=== PATIENT | male | born 1950 | race Caucasian/White ===

== ENCOUNTER → 2017-12-22 | Outpatient (CLI) | payer OTHER ==
[~2017-12-22] MED LIST: ASPI81CH PO; BENAML10/5 PO; HYDACE5 PO; NAPR500 PO; Nitrostat0.4 MG SL; OMEP10ER PO; TOBR.3OPSO OP; TRAM50 PO
== END | disposition home or self-care (01) ==
LOC: PLD 14:05 → LAB SHORT 14:05
DX: D22.39 Melanocytic nevi of other parts of face (principal)
CPT/HCPCS: 88305

== ENCOUNTER → 2018-09-10 | Outpatient (CLI) | payer OTHER ==
[2018-09-10 12:07] LABS: BASOPHILS ABSOLUTE AUTO 0.01 K/mm3 (0.00-0.23); BASOPHILS PERCENT AUTO 0 % (0-2); EOSINOPHILS ABSOLUTE AUTO 0.14 K/mm3 (0.00-0.68); EOSINOPHILS PERCENT AUTO 3 % (0-6); Hematocrit 41.3 % (37.0-53.0); Hemoglobin 13.9 g/dL (13.5-17.5); IMMATURE GRAN ABSOLUTE AUTO 0.04 K/mm3 (0.00-0.10); IMMATURE GRAN PERCENT AUTO 1 % (0-1); LYMPHOCYTES ABSOLUTE AUTO 1.57 K/mm3 (0.84-5.20); LYMPHOCYTES PERCENT AUTO 28 % (21-46); MONOCYTES ABSOLUTE AUTO 0.55 K/mm3 (0.16-1.47); MONOCYTES PERCENT AUTO 10 % (4-13); Mean Corpuscular HGB 31.4 pg (26.0-34.0); Mean Corpuscular HGB Conc 33.7 g/dL (31.5-36.5); Mean Corpuscular Volume 93 fL (80-100); NEUTROPHILS ABSOLUTE AUTO 3.24 K/mm3 (1.96-9.15); NEUTROPHILS PERCENT AUTO 58 % (41-73); Platelet Count 237 K/mm3 (150-400); RDW Coefficient Variation 13.3 % (11.7-14.2); RDW Standard Deviation 45.5 fL (35.1-46.3); Red Blood Cell Count 4.43 M/mm3 (4.30-5.90); White Blood Cell Count 5.55 K/mm3 (4.00-11.30)
[2018-09-10 12:25] LABS: Alanine Aminotransfer (ALT/SGP 38 U/L (12-78); Albumin, Blood 4.2 g/dL (3.4-5.0); Albumin/Globulin Ratio 1.5 (0.8-1.8); Alk Phos 53 U/L (40-126); Anion Gap 12 mmol/L (6-16); Aspartate Aminotrans (AST/SGOT 19 U/L (12-37); Bilirubin, Total 0.4 mg/dL (0.1-1.0); Blood Urea Nitrogen 22 mg/dL (8-24); Bun/Creatinine Ratio 18.8 (12.0-20.0); CO2, Blood 25 mmol/L (21-32); CPK Creatine Kinase 98 U/L (39-308); Calcium, Blood 9.3 mg/dL (8.5-10.1); Chloride, Blood 105 mmol/L (98-108); Creatinine, Blood 1.17 mg/dL (0.60-1.20); Free Thyroxine 0.73 ng/dL (0.70-1.60); Globulin, Blood 2.8 g/dL (2.2-4.0); Glomerular Filtration Rate >60 (60-); Glucose, Blood 134 mg/dL (70-99); Potassium, Blood 4.2 mmol/L (3.5-5.5); Sodium, Blood 142 mmol/L (136-145); Thyroid Stimulating Hormone 1.643 uIU/mL (0.360-4.800); Troponin I 0.018 ng/mL (0.000-0.040)
== END | disposition home or self-care (01) ==
LOC: LAB SHORT 11:56 → LAB EV 11:56
PROVIDERS: General Practice
DX: R06.02 Shortness of breath (principal); R53.81 Other malaise
CPT/HCPCS: 80053; 82550; 83880; 84439; 84443; 84484; 85025

== ENCOUNTER 2018-12-20 21:47 | Emergency (ER) | payer OTHER ==
[~2018-12-20] VITALS: Ht 177.8 cm; Wt 117.9 kg
== END 2018-12-20 23:40 | disposition home or self-care (01) ==
LOC: ER 21:47
DX: S01.01XA Laceration without foreign body of scalp, initial encounter (principal); W22.8XXA Striking against or struck by other objects, initial encounter; Z79.899 Other long term (current) drug therapy; Z79.82 Long term (current) use of aspirin; K21.9 Gastro-esophageal reflux disease without esophagitis; I10 Essential (primary) hypertension; Z87.891 Personal history of nicotine dependence
CPT/HCPCS: 12001; 99282-25

== ENCOUNTER 2018-12-25 16:41 | Emergency (ER) | payer OTHER ==
[~2018-12-25] VITALS: Ht 177.8 cm; Wt 117.9 kg
== END 2018-12-25 19:31 | disposition home or self-care (01) ==
LOC: ER 16:41
DX: K62.89 Other specified diseases of anus and rectum (principal); S01.01XD Laceration without foreign body of scalp, subsequent encounter; Z79.899 Other long term (current) drug therapy; K21.9 Gastro-esophageal reflux disease without esophagitis; I10 Essential (primary) hypertension
CPT/HCPCS: 74018; 99283-25

== ENCOUNTER → 2019-03-07 | Outpatient (CLI) | payer OTHER | END | disposition home or self-care (01) | LOC: LAB SHORT 11:52 → LAB 11:52 | DX: H66.90 Otitis media, unspecified, unspecified ear (principal) | CPT/HCPCS: 87070; 87205 ==

== ENCOUNTER → 2019-11-15 | Outpatient (CLI) | payer OTHER | END | disposition home or self-care (01) | LOC: PLD 12:04 → LAB SHORT 12:04 | DX: D22.62 Melanocytic nevi of left upper limb, including shoulder (principal) | CPT/HCPCS: 88305 ==

== ENCOUNTER → 2021-03-16 | Outpatient (CLI) | payer MEDICARE, BC ==
[2021-03-16 11:51] LABS: BASOPHILS ABSOLUTE AUTO 0.03 K/mm3 (0.00-0.23); BASOPHILS PERCENT AUTO 1 % (0-2); EOSINOPHILS ABSOLUTE AUTO 0.18 K/mm3 (0.00-0.68); EOSINOPHILS PERCENT AUTO 3 % (0-6); Hematocrit 48.4 % (37.0-53.0); IMMATURE GRAN ABSOLUTE AUTO 0.03 K/mm3 (0.00-0.10); IMMATURE GRAN PERCENT AUTO 1 % (0-1); LYMPHOCYTES ABSOLUTE AUTO 1.95 K/mm3 (0.84-5.20); LYMPHOCYTES PERCENT AUTO 31 % (21-46); MONOCYTES ABSOLUTE AUTO 0.83 K/mm3 (0.16-1.47); MONOCYTES PERCENT AUTO 13 % (4-13); Mean Corpuscular HGB 30.9 pg (26.0-34.0); Mean Corpuscular HGB Conc 33.1 g/dL (31.5-36.5); Mean Corpuscular Volume 94 fL (80-100); Mean Platelet Volume 10.7 fL (9.1-12.4); NEUTROPHILS ABSOLUTE AUTO 3.31 K/mm3 (1.96-9.15); NEUTROPHILS PERCENT AUTO 52 % (41-73); Platelet Count 253 K/mm3 (150-400); RDW Coefficient Variation 14.2 % (11.7-14.2); RDW Standard Deviation 49.1 fL (35.1-46.3); Red Blood Cell Count 5.17 M/mm3 (4.30-5.90); White Blood Cell Count 6.33 K/mm3 (4.00-11.30)
[2021-03-16 12:15] LABS: Troponin I <0.015 ng/mL (0.000-0.040)
[2021-03-16 12:16] LABS: Alanine Aminotransfer (ALT/SGP 45 U/L (12-78); Albumin, Blood 4.2 g/dL (3.4-5.0); Alk Phos 55 U/L (50-136); Anion Gap 5 mmol/L (6-16); Aspartate Aminotrans (AST/SGOT 23 U/L (12-37); Bilirubin, Total 0.6 mg/dL (0.1-1.0); Blood Urea Nitrogen 26 mg/dL (8-24); Bun/Creatinine Ratio 22.4 (12.0-20.0); CO2, Blood 24 mmol/L (21-32); Calcium, Blood 9.7 mg/dL (8.5-10.1); Chloride, Blood 111 mmol/L (98-108); Creatinine, Blood 1.16 mg/dL (0.60-1.20); Glomerular Filtration Rate >60 (60-); Glucose, Blood 100 mg/dL (70-99); Potassium, Blood 4.4 mmol/L (3.5-5.5); Sodium, Blood 140 mmol/L (136-145); Total Protein, Blood 8.2 g/dL (6.4-8.2)
== END | disposition home or self-care (01) ==
LOC: LAB SHORT 10:00
PROVIDERS: Nurse Practitioner Family
DX: R06.02 Shortness of breath (principal); R05.9 Cough, unspecified
CPT/HCPCS: 80053; 83880; 84484; 85025

== ENCOUNTER → 2021-08-24 | Outpatient (CLI) | payer MEDICARE, BC ==
[~2021-08-24] MED LIST changes: +CYCL10 PO; +ELIQUIS5 M2 PO
== END | disposition home or self-care (01) ==
LOC: LAB 10:03
DX: J02.9 Acute pharyngitis, unspecified (principal)
CPT/HCPCS: 87077; 87081; 87185

== ENCOUNTER → 2022-01-13 | Outpatient (CLI) | payer MEDICARE, BC | LOC: LAB 14:14 → LAB SHORT 14:14 | DX: L08.9 Local infection of the skin and subcutaneous tissue, unspecified (principal) | CPT/HCPCS: 87070; 87075; 87076; 87205 ==

== ENCOUNTER → 2022-09-12 | Outpatient (CLI) | payer MEDICARE, BC | END | disposition home or self-care (01) | LOC: LAB SHORT 14:13 → LAB 14:13 | DX: R22.41 Localized swelling, mass and lump, right lower limb (principal) | CPT/HCPCS: 85379 ==

== ENCOUNTER 2023-01-30 10:46 | Day surgery (SDC) | payer MEDICARE, BC ==
[~2023-01-30] VITALS: Ht 177.8 cm; Wt 115.4 kg
--- NOTE | 2023-01-30 11:35 | NUR ---
01/30/23 1135 SHARONDA WINKLER PT IS A&O X4, COOPERATIVE AND PLEASANT WITH CARE. PRE-OP EDUCATION COMPLETED. CALL LIGHT WITHIN REACH.
--- NOTE | 2023-01-30 14:48 | NUR ---
01/30/23 1448 Zayda William IV REMOVED, CANNULA INTACT. PT MITA WELL, DENIES NAUSEA REPORTS PAIN 1.5. PT READY FOR DISCHARGE. VERBALIZED UNDERSTANDING OF ALL DISCHARGE INSTRUCTIONS
[2023-01-30 14:50] VITALS: BP 115/77
== END 2023-01-30 14:58 | disposition home or self-care (01) ==
LOC: ORSCSDS 10:46
PROVIDERS: Podiatrist Foot & Ankle Surgery
PROC: 0QBM0ZZ Excision of Left Tarsal, Open Approach (ICD-10-PCS; principal; 2023-01-30 12:00)
PROC: 0LQP0ZZ Repair Left Lower Leg Tendon, Open Approach (ICD-10-PCS; principal; 2023-01-30 12:00)
DX: M76.62 Achilles tendinitis, left leg (principal); M89.8X7 Other specified disorders of bone, ankle and foot; G47.33 Obstructive sleep apnea (adult) (pediatric); I10 Essential (primary) hypertension; K21.9 Gastro-esophageal reflux disease without esophagitis; Z79.899 Other long term (current) drug therapy; Z87.891 Personal history of nicotine dependence; E66.9 Obesity, unspecified; Z68.37 Body mass index [BMI] 37.0-37.9, adult; Z68.36 Body mass index [BMI] 36.0-36.9, adult
CPT/HCPCS: A9270; C1713; J0171; J0690; J1100; J2405; J2704; J2795; J3010

== ENCOUNTER 2023-02-14 23:57 | Inpatient (IN) | payer MEDICARE, BC ==
[~2023-02-14] VITALS: Ht 175.3 cm; Wt 116.5 kg
[2023-02-15 01:19] LABS: BASOPHILS ABSOLUTE AUTO 0.04 K/mm3 (0.00-0.23); BASOPHILS PERCENT AUTO 0 % (0-2); EOSINOPHILS ABSOLUTE AUTO 0.15 K/mm3 (0.00-0.68); EOSINOPHILS PERCENT AUTO 1 % (0-6); Hematocrit 47.2 % (37.0-53.0); Hemoglobin 15.8 g/dL (13.5-17.5); IMMATURE GRAN ABSOLUTE AUTO 0.08 K/mm3 (0.00-0.10); IMMATURE GRAN PERCENT AUTO 1 % (0-1); LYMPHOCYTES ABSOLUTE AUTO 1.55 K/mm3 (0.84-5.20); LYMPHOCYTES PERCENT AUTO 13 % (21-46); MONOCYTES PERCENT AUTO 9 % (4-13); Mean Corpuscular HGB 30.7 pg (26.0-34.0); Mean Corpuscular HGB Conc 33.5 g/dL (31.5-36.5); Mean Corpuscular Volume 92 fL (80-100); NEUTROPHILS ABSOLUTE AUTO 8.81 K/mm3 (1.96-9.15); NEUTROPHILS PERCENT AUTO 76 % (41-73); RDW Coefficient Variation 13.2 % (11.7-14.2); RDW Standard Deviation 44.9 fL (35.1-46.3); Red Blood Cell Count 5.14 M/mm3 (4.30-5.90); White Blood Cell Count 11.63 K/mm3 (4.00-11.30)
[2023-02-15] MEDS ORDERED: Amlodipine-Ben1 EAC1 PO (01:26)
[2023-02-15 01:27] LABS: Mean Platelet Volume 10.2 fL (9.1-12.4); Platelet Count 155 K/mm3 (150-400)
[2023-02-15] MEDS ORDERED: HYDROCODONE-AC1 EA19 PO (01:27)
[2023-02-15 01:30] LABS: Albumin, Blood 3.7 g/dL (3.4-5.0); Albumin/Globulin Ratio 0.9 (0.8-1.8); Bilirubin, Total 0.8 mg/dL (0.1-1.0); Calcium, Blood 9.1 mg/dL (8.5-10.1); Creatinine, Blood 1.05 mg/dL (0.60-1.20); Globulin, Blood 4.1 g/dL (2.2-4.0); Potassium, Blood 4.5 mmol/L (3.5-5.5); Total Protein, Blood 7.8 g/dL (6.4-8.2)
[2023-02-15 02:46] LABS: Anti-Xa UFH, PHA Monitoring <0.10 IU/mL; Prothrombin Time Results 10.5 Sec (9.7-11.5)
[2023-02-15 03:33] VITALS: BP 150/118
[2023-02-15 04:01] VITALS: BP 127/94
--- NOTE | 2023-02-15 04:18 | NUR ---
SHIFT SUMMARY PT ER ADMIT THIS SHIFT FOR NSTEMI, PT HAS RECEIVED PLAVIX AND ASPIRIN IN THE ER AND IS NOW ON A HEPARIN GTT. PT IS SETTLED IN ROOM, HYPERTENSIVE UPON ADMISSION BUT BLOOD PRESSURE HAS STABILIZED. PT STILL REPORTS CHEST PAIN, DESCRIBES IT A DULL PAIN, STATES PAIN 1/10. NO N/V, SKIN WARM AND DRY. TELE IN PLACE ST IN THE TEEN'S. PT STATES CHEST PAIN IS UNCHANGED AND HAS REMAINED A 1/10 AT HOME AND UPON ADMISSION. PT SHORT OF BREATH, 2L O2 IN PLACE FOR COMFORT. PT ALSO MAINTAINS SATS WNL ON RA. PT NPO AT THIS TIME, SERIAL TROPONIN'S ORDERED. PT S/P ACHILLES SURGERY TO REMOVE BONE SPURS 2 WEEKS AGO, SPLINT IS IN PLACE TO LLE. PT REPORTS SENSATION. CALL LIGHT WITHIN REACH, BED IN LOWEST POSITION.
[2023-02-15 06:01] LABS: Cholesterol 168 mg/dL (50-200); HDL Cholesterol 42 mg/dL (>39); LDL/HDL RATIO 2.5; Low Density Lipoprotein Chol 104 mg/dL (0-110); Triglycerides 108 mg/dL (30-160); Very Low Density Lipoprot Chol 21 mg/dL (6-32)
--- NOTE | 2023-02-15 06:22 | NUR ---
INCREASED SOB PT COMPLAINS OF INCREASED SOB AND DIFFICULTY GETTING A BREATH IN. PT PLACED ON O2. INITALLY WAS ON 2L, THIS DID NOT OFFER ANY RELIEF SO INCREASED TO 3L. DESPITE THESE INTERVENTIONS PT STILL REPORTING SOB. SATS ARE 97%. TROPONINS HAVE CONTINUED TO INCREASE NOW UP TO [address] ANDREWS CALLED AND NOTIFIED OF INCREASED TROPONIN OF 1539, WELL OF PT COMPLAINTS OF INCREASED SOB. NOTIFIED HIM THAT O2 WAS PLACED TO HELP ALLEVIATE SOB, NOTIFIED HIM THAT I INITALLY PLACED 2 AND INCREASED TO 3L WITHOUT RELIEF OF SYMPTOMS. HE ORDERED A 1V CHEST XRAY TO BE DONE THIS AM ORDER PLACED. PT NOTIFIED OF CURRENT PLAN. NO ADDITIONAL ORDERS FOR ELEVATED TROPONIN, HEPARIN GTT INFUSING. CHEST PAIN UNCHANGED AND STILL 06/24.
[2023-02-15 08:49] VITALS: BP 119/88
--- NOTE | 2023-02-15 09:00 | NUR ---
ASSUMED CARE PT ALERT AND ORIENTED. ANSWERING QUESTIONS APPROPRIATELY. VS STABLE. HR ST LOW 100'S. PT COMPLAINS OF SHORTNESS OF BREATH. PT STATES CHEST PAIN IS SHARP AND ABOUT 1/10 AT THIS TIME. PT INFORMS THIS RN THAT HE HAD A DVT IN THE PAST. D-DIMER ELEVATED AND DR. MAGANA NOTIFIED. NEW ORDERS FOR CT PE STUDY. HEP GTT INFUSING PER ORDERS. LEFT LEG WITH DRESSING IN PLACE. PT STATES HE IS NON-WEIGHT BEARING TO LEFT LEG FROM SURGERY 2 WEEKS AGO. AT BEDSIDE UPDATED ON PLAN OF CARE. WILL CONTINUE TO MONITOR CLOSELY
[2023-02-15 11:56] VITALS: BP 110/91
[2023-02-15 15:46] VITALS: BP 107/82
--- NOTE | 2023-02-15 17:27 | NUR ---
SHIFT SUMMARY PT CONTINUES TO BE ORIENTED. VS STABLE. O2 SATS REMAIN ABOVE 90% ON RA. PT DOES STILL COMPLAIN OF SHORTNESS OF BREATH. PT DOES NOT TOLERATE MUCH ACTIVITY AT THIS TIME. PT REPOSITIONED Q2H. PT ABLE TO VOID USING URINAL. HEP GTT INFUSING PER ORDERS. PT COMPLAINED OF DULL CP ABOUT 1/10 MOST OF SHIFT. FAMILY AT BEDSIDE ALL SHIFT. WILL CONTINUE TO MONITOR CLOSELY AND REPORT TO ONCOMING RN
[2023-02-15 20:20] VITALS: BP 111/92
[2023-02-16 00:46] VITALS: BP 127/92
[2023-02-16 03:54] VITALS: BP 142/90
[2023-02-16 04:17] LABS: BASOPHILS ABSOLUTE AUTO 0.03 K/mm3 (0.00-0.23); BASOPHILS PERCENT AUTO 0 % (0-2); EOSINOPHILS ABSOLUTE AUTO 0.18 K/mm3 (0.00-0.68); EOSINOPHILS PERCENT AUTO 2 % (0-6); Hematocrit 44.4 % (37.0-53.0); IMMATURE GRAN ABSOLUTE AUTO 0.06 K/mm3 (0.00-0.10); IMMATURE GRAN PERCENT AUTO 1 % (0-1); LYMPHOCYTES ABSOLUTE AUTO 2.55 K/mm3 (0.84-5.20); LYMPHOCYTES PERCENT AUTO 30 % (21-46); MONOCYTES ABSOLUTE AUTO 0.86 K/mm3 (0.16-1.47); MONOCYTES PERCENT AUTO 10 % (4-13); Mean Corpuscular HGB 30.4 pg (26.0-34.0); Mean Corpuscular HGB Conc 33.8 g/dL (31.5-36.5); Mean Corpuscular Volume 90 fL (80-100); Mean Platelet Volume 10.3 fL (9.1-12.4); NEUTROPHILS ABSOLUTE AUTO 4.78 K/mm3 (1.96-9.15); NEUTROPHILS PERCENT AUTO 57 % (41-73); Platelet Count 162 K/mm3 (150-400); RDW Coefficient Variation 13.4 % (11.7-14.2); RDW Standard Deviation 44.5 fL (35.1-46.3); Red Blood Cell Count 4.93 M/mm3 (4.30-5.90); White Blood Cell Count 8.46 K/mm3 (4.00-11.30)
[2023-02-16 04:37] LABS: Bun/Creatinine Ratio 17.5 (12.0-20.0); Calcium, Blood 9.1 mg/dL (8.5-10.1); Creatinine, Blood 1.14 mg/dL (0.60-1.20); Potassium, Blood 4.3 mmol/L (3.5-5.5)
--- NOTE | 2023-02-16 06:06 | NUR ---
End of shift note. Pt has rested well for much of the night. Denies CP or SOB. Hep gtt continues to infuse without issue. Pt is able to make needs known, call light is within reach.
[2023-02-16 07:35] VITALS: BP 115/93
--- NOTE | 2023-02-16 08:54 | NUR ---
ASSUMED CARE PT IS ALERT AND ORIENTED. BP STABLE. HR NSR 70'S. O2 SATS >90% ON RA. PT REPORTS HE FEELS LESS SOB THIS AM THAN YESTERDAY. PT DENIES ANY CP TODAY. HEP GTT INFUSING PER ORDERS. PT ABLE TO REPOSITION HIMSELF IN BED. BANDAGE STILL NOTED TO LEFT LOWER LEG. AT BEDSIDE. WILL CONTINUE TO MONITOR CLOSELY
[2023-02-16 11:52] VITALS: BP 105/91
[2023-02-16 17:19] VITALS: BP 125/88
--- NOTE | 2023-02-16 17:20 | NUR ---
UPDATE HEP GTT DISCONTINUED PER ORDERS. PT MEDICATED WITH ELIQUIS PER ORDERS AND EDUCATED ON NEW MED. DR. JASSO IN WITH PLANS FOR DISCHARGE. AWAITING ORDERS. AT BEDSIDE. PT SITTING UP EATING DINNER
[2023-02-16] MEDS ORDERED: ASPI81CH PO (17:43)
[2023-02-16] MEDS ORDERED: ATOR40TA PO (17:44)
--- NOTE | 2023-02-16 17:45 | NUR ---
UPDATE DC INSTRUCTIONS PROVIDED TO PT. PT EDUCATED ON NEW MEDICATIONS AND FOLLOW-UP. ALL QUESTIONS ANSWERED. PT TAKEN OUT VIA WC WITH ALL OF HIS BELONGINGS.
[2023-02-16] MEDS ORDERED: ELIQUIS5 M2 PO ×2 (17:47→17:48)
== END 2023-02-16 18:17 | disposition home or self-care (01) | DRG 280 ==
LOC: ER 23:57 → PCU 23:58 → MEDS 23:58 → ER 23:58 → PCU 02-15 03:20 → MEDS 02-15 03:20 → PCU 02-15 05:01
PROVIDERS: Student in an Organized Health Care Education/Training Program; ADMIT Internal Medicine
DX: I21.4 Non-ST elevation (NSTEMI) myocardial infarction (principal); I26.92 Saddle embolus of pulmonary artery without acute cor pulmonale; J96.01 Acute respiratory failure with hypoxia; I10 Essential (primary) hypertension; K21.9 Gastro-esophageal reflux disease without esophagitis; I25.10 Atherosclerotic heart disease of native coronary artery without angina pectoris; Z86.718 Personal history of other venous thrombosis and embolism; Z98.890 Other specified postprocedural states; Z79.82 Long term (current) use of aspirin; Z79.02 Long term (current) use of antithrombotics/antiplatelets; Z79.899 Other long term (current) drug therapy; Z20.822 Contact with and (suspected) exposure to COVID-19; Z87.891 Personal history of nicotine dependence; Z79.01 Long term (current) use of anticoagulants
CPT/HCPCS: 36415; 71045; 71046; 71260; 80048; 80053; 80061; 83036; 83690; 83880; 84443; 84484; 85025; 85379; 85520; 85610; 93005; 93010; 93306; 94760; 96365; 96366; 96375; 99285; A9270; G0378; J1644; J2405; Q9967

== ENCOUNTER 2023-03-23 17:40 | Emergency (ER) | payer MEDICARE, BC ==
[~2023-03-23] VITALS: Ht 177.8 cm; Wt 115.7 kg
[~2023-03-23 17:40] MED LIST changes: +ATOR40TA PO; +Amlodipine-Ben1 EAC1 PO; +HYDROCODONE-AC1 EA19 PO
[2023-03-23 18:24] LABS: BASOPHILS ABSOLUTE AUTO 0.02 K/mm3 (0.00-0.23); BASOPHILS PERCENT AUTO 0 % (0-2); EOSINOPHILS ABSOLUTE AUTO 0.14 K/mm3 (0.00-0.68); EOSINOPHILS PERCENT AUTO 2 % (0-6); Hematocrit 45.4 % (37.0-53.0); IMMATURE GRAN ABSOLUTE AUTO 0.05 K/mm3 (0.00-0.10); IMMATURE GRAN PERCENT AUTO 1 % (0-1); LYMPHOCYTES ABSOLUTE AUTO 2.28 K/mm3 (0.84-5.20); LYMPHOCYTES PERCENT AUTO 30 % (21-46); MONOCYTES ABSOLUTE AUTO 0.94 K/mm3 (0.16-1.47); MONOCYTES PERCENT AUTO 12 % (4-13); Mean Corpuscular HGB 30.4 pg (26.0-34.0); Mean Corpuscular Volume 92 fL (80-100); Mean Platelet Volume 9.6 fL (9.1-12.4); NEUTROPHILS ABSOLUTE AUTO 4.25 K/mm3 (1.96-9.15); NEUTROPHILS PERCENT AUTO 55 % (41-73); NRBC ABSOLUTE 0.02 K/mm3 (0.00-0.02); NRBC Auto 0.3 /100 WBC (0.0-0.2); Platelet Count 247 K/mm3 (150-400); RDW Coefficient Variation 13.8 % (11.7-14.2); RDW Standard Deviation 46.9 fL (35.1-46.3); Red Blood Cell Count 4.94 M/mm3 (4.30-5.90); White Blood Cell Count 7.68 K/mm3 (4.00-11.30)
[2023-03-23 18:49] LABS: Albumin, Blood 4.1 g/dL (3.4-5.0); Bilirubin, Total 0.4 mg/dL (0.1-1.0); Calcium, Blood 9.3 mg/dL (8.5-10.1); Creatinine, Blood 1.15 mg/dL (0.60-1.20); Potassium, Blood 4.3 mmol/L (3.5-5.5); Total Protein, Blood 8.1 g/dL (6.4-8.2)
[2023-03-23 21:30] VITALS: BP 126/86
== END 2023-03-23 21:57 | disposition home or self-care (01) ==
LOC: ER 17:40
PROVIDERS: Physician Assistant
DX: R07.9 Chest pain, unspecified (principal); Z79.82 Long term (current) use of aspirin; Z79.899 Other long term (current) drug therapy; Z79.01 Long term (current) use of anticoagulants; Z87.891 Personal history of nicotine dependence
CPT/HCPCS: 71046; 80053; 84484; 85025; 93005; 93010; 99285-25

== ENCOUNTER 2024-03-21 12:28 | Day surgery (SDC) | payer MEDICARE, BC ==
[~2024-03-21] VITALS: Ht 177.8 cm; Wt 118.3 kg
[2024-03-21] VITALS (15 sets, daily range): BP systolic 92–127; BP diastolic 62–86
[~2024-03-21 12:28] MED LIST changes: +Acetaminophen 500 MG Tab PO SCH; +CeFAZolin Sodium 2,000 MG in NS 100 ML IV SCH; +Chlorhexidine Mouth Care 15 ML UDC MT SCH; +Lactated Ringer's 1,000 ML IV SCH; +Midazolam HCl 1MG / ML 2ML Vial ONE; +OxyCODONE HCL 10 MG TABCR PO SCH; +Ropivacaine 0.5% HCl/Pf 123.125 MG,EPINEPHrine HCL 0.25 MG,Ketorolac Tromethamine 15 MG... INFIL SCH; +Tranexamic Acid 100 ML IV SCH; +propofoL 60 ML IV ONE
[2024-03-21] MEDS ORDERED: Promethazine HCl 25 MG Tab PO PRN (12:55)
[2024-03-21] MEDS ORDERED: OxyCODONE HCL 5 MG TAB PO PRN ×2 (12:55)
[2024-03-21] MEDS ORDERED: Ondansetron HCl 2 MG / ML 2ML Vial IV PRN (13:00)
[2024-03-21] MEDS ORDERED: Magnesium Hydroxide Conc 10 ML UDC PO PRN (13:00)
[2024-03-21] MEDS ORDERED: DiphenhydrAMINE HCL 25 MG Cap PO PRN (13:00)
[2024-03-21] MEDS ORDERED: Midazolam HCl 1MG / ML 2ML Vial ONE (13:00)
[2024-03-21] MEDS ORDERED: Lactated Ringer's 1,000 ML IV SCH (13:00)
[2024-03-21] MEDS ORDERED: Metoclopramide HCl 5MG / ML 2ML Vial IV PRN (13:00)
[2024-03-21] MEDS ORDERED: Bisacodyl 10 MG Supp PR PRN (13:00)
[2024-03-21] MEDS ORDERED: FLU VACC TS2024-25(6MOS UP)/PF 45 MCG/0.5 ML SYRINGE IM SCH (13:05)
[2024-03-21] MEDS ORDERED: HYDROmorphone HCl/Pf 1MG SYR IV PRN (13:05)
[2024-03-21] MEDS ORDERED: propofoL 20 ML IV ONE (13:07)
--- NOTE | 2024-03-21 13:13 | NUR ---
History, Chart, Medications and Allergies reviewed before start of procedure. Pre-Op teaching done. Pt verbalizes understanding. Patient confirms NPO status and agrees with scheduled surgery. PT GAVE GLASSES AND BELONGINGS BAG TO AT BS.
[2024-03-21] MEDS ORDERED: Phenylephrine HCl 100 MCG/ML-NS 10MLSYR (1MG/10ML) ONE (13:46)
[2024-03-21] MEDS ORDERED: propofoL 40 ML IV ONE (13:46)
--- NOTE | 2024-03-21 15:40 | NUR ---
ARRIVAL TO SURGICAL UNIT VIA HOSPITAL BED, ASSESSMENT CHARTED. ALERT & PLEASANT. DENIES N/V; SNACKS & DRINKS GIVEN. AT BEDSIDE.
[2024-03-21] MEDS ORDERED: Acetaminophen 500 MG Tab PO SCH (16:00)
[2024-03-21] MEDS ORDERED: Ketorolac Tromethamine 15mg Vial IV SCH (18:00)
[2024-03-21] MEDS ORDERED: CeFAZolin Sodium 2,000 MG in NS 100 ML IV SCH (21:00)
[2024-03-21] MEDS ORDERED: Docusate Sodium 100 MG Cap PO SCH (21:00)
[2024-03-22 04:16] VITALS: BP 124/86
[2024-03-22 05:08] LABS: BASOPHILS ABSOLUTE AUTO 0.02 K/mm3 (0.00-0.23); BASOPHILS PERCENT AUTO 0 % (0-2); EOSINOPHILS ABSOLUTE AUTO 0.12 K/mm3 (0.00-0.68); EOSINOPHILS PERCENT AUTO 2 % (0-6); Hematocrit 38.9 % (37.0-53.0); Hemoglobin 12.7 g/dL (13.5-17.5); IMMATURE GRAN ABSOLUTE AUTO 0.02 K/mm3 (0.00-0.10); IMMATURE GRAN PERCENT AUTO 0 % (0-1); LYMPHOCYTES ABSOLUTE AUTO 1.56 K/mm3 (0.84-5.20); LYMPHOCYTES PERCENT AUTO 21 % (21-46); MONOCYTES PERCENT AUTO 9 % (4-13); Mean Corpuscular HGB 30.8 pg (26.0-34.0); Mean Corpuscular HGB Conc 32.6 g/dL (31.5-36.5); Mean Corpuscular Volume 94 fL (80-100); Mean Platelet Volume 10.2 fL (9.1-12.4); NEUTROPHILS ABSOLUTE AUTO 5.13 K/mm3 (1.96-9.15); NEUTROPHILS PERCENT AUTO 68 % (41-73); Platelet Count 192 K/mm3 (150-400); RDW Coefficient Variation 14.2 % (11.7-14.2); RDW Standard Deviation 49.6 fL (35.1-46.3); Red Blood Cell Count 4.12 M/mm3 (4.30-5.90); White Blood Cell Count 7.55 K/mm3 (4.00-11.30)
[2024-03-22 05:46] LABS: Bun/Creatinine Ratio 21.6 (12.0-20.0); Calcium, Blood 8.7 mg/dL (8.5-10.1); Creatinine, Blood 1.16 mg/dL (0.60-1.20); Magnesium, Blood 2.5 mg/dL (1.6-2.4); Potassium, Blood 4.2 mmol/L (3.5-5.5)
--- NOTE | 2024-03-22 06:11 | NUR ---
SHIFT SUMMARY POD 1 L TKA. NO ACUTE CHANGES OVERNIGHT. VSS. TOLERATING ORALS. VOIDING. AMBULATES USING FWW c GB & SBA. AQUACEL x2 C/D/I c SCANT SANG DRAINAGE ON LOWER AQUACEL. ANTICIPATED TO WORK WITH PHYSCIAL THERAPY THEN DISCHARGE HOME TODAY. RESTING IN CHAIR, POLAR PACK IN USE, LOWER EXTREMITIES ELEVATED. CALL LIGHT IN REACH, WILL REPORT TO DAY RN.
[2024-03-22 07:07] VITALS: BP 133/86
[2024-03-22] MEDS ORDERED: Lisinopril 10 MG Tab PO SCH (09:00)
[2024-03-22] MEDS ORDERED: AmLODIPine Besylate 5 MG Tab PO SCH (09:00)
[2024-03-22] MEDS ORDERED: ACET500 PO (09:16)
[2024-03-22] MEDS ORDERED: OXYC5 PO (09:17)
--- NOTE | 2024-03-22 11:29 | NUR ---
DISCHARGE PT HAS CLEARED THERAPY. PAIN WELL CONTROLLED. EATING, DRINKING, & VOIDING WELL. MARIA LUZ & GLORIA PACK SENT w/ PT. ESCORTED OUT VIA W/C.
[2024-03-22] MEDS ORDERED: Apixaban 5 MG Tab PO SCH (13:30)
== END 2024-03-22 11:28 | disposition home or self-care (01) ==
LOC: ORSCMMR 12:28 → SURS 15:26 → ORSCMMR 15:35 → ORD 15:35 → ORSCMMR 03-22 11:28
PROVIDERS: Orthopaedic Surgery
PROC: 0SRD0JA Replacement of Left Knee Joint with Synthetic Substitute, Uncemented, Open Approach (ICD-10-PCS; principal; 2024-03-21 15:35)
PROC: 8E0Y0CZ Robotic Assisted Procedure of Lower Extremity, Open Approach (ICD-10-PCS; principal; 2024-03-21 15:35)
DX: M17.12 Unilateral primary osteoarthritis, left knee (principal); Z86.718 Personal history of other venous thrombosis and embolism; Z79.01 Long term (current) use of anticoagulants; Z79.899 Other long term (current) drug therapy; Z79.82 Long term (current) use of aspirin; I10 Essential (primary) hypertension; E78.5 Hyperlipidemia, unspecified; K21.9 Gastro-esophageal reflux disease without esophagitis; E66.9 Obesity, unspecified; Z68.39 Body mass index [BMI] 39.0-39.9, adult
CPT/HCPCS: 27447; 0055T; 36415; 73560-LT; 80048; 83735; 85025; 97110; 97116; 97162; 97530; A9270; C1713; C1776; J0171; J0690; J0735; J1885; J2250; J2371; J2704; J2795; J7120

== ENCOUNTER 2024-04-08 22:22 | Emergency (ER) | payer MEDICARE, BC ==
[~2024-04-08] VITALS: Ht 177.8 cm; Wt 113.4 kg
[~2024-04-08 22:22] MED LIST changes: +ACET500 PO; -Acetaminophen 500 MG Tab PO SCH; -CeFAZolin Sodium 2,000 MG in NS 100 ML IV SCH; -Chlorhexidine Mouth Care 15 ML UDC MT SCH; -Lactated Ringer's 1,000 ML IV SCH; -Midazolam HCl 1MG / ML 2ML Vial ONE; +OXYC5 PO; -OxyCODONE HCL 10 MG TABCR PO SCH; -Ropivacaine 0.5% HCl/Pf 123.125 MG,EPINEPHrine HCL 0.25 MG,Ketorolac Tromethamine 15 MG... INFIL SCH; -Tranexamic Acid 100 ML IV SCH; -propofoL 60 ML IV ONE
[2024-04-08 23:04] LABS: BASOPHILS ABSOLUTE AUTO 0.04 K/mm3 (0.00-0.23); BASOPHILS PERCENT AUTO 1 % (0-2); EOSINOPHILS ABSOLUTE AUTO 0.11 K/mm3 (0.00-0.68); EOSINOPHILS PERCENT AUTO 1 % (0-6); Hematocrit 37.2 % (37.0-53.0); Hemoglobin 12.3 g/dL (13.5-17.5); IMMATURE GRAN ABSOLUTE AUTO 0.05 K/mm3 (0.00-0.10); IMMATURE GRAN PERCENT AUTO 1 % (0-1); LYMPHOCYTES ABSOLUTE AUTO 1.59 K/mm3 (0.84-5.20); LYMPHOCYTES PERCENT AUTO 18 % (21-46); MONOCYTES ABSOLUTE AUTO 1.05 K/mm3 (0.16-1.47); MONOCYTES PERCENT AUTO 12 % (4-13); Mean Corpuscular HGB 30.8 pg (26.0-34.0); Mean Corpuscular HGB Conc 33.1 g/dL (31.5-36.5); Mean Corpuscular Volume 93 fL (80-100); Mean Platelet Volume 8.9 fL (9.1-12.4); NEUTROPHILS ABSOLUTE AUTO 5.99 K/mm3 (1.96-9.15); NEUTROPHILS PERCENT AUTO 68 % (41-73); Platelet Count 510 K/mm3 (150-400); RDW Coefficient Variation 13.8 % (11.7-14.2); RDW Standard Deviation 47.1 fL (35.1-46.3); Red Blood Cell Count 3.99 M/mm3 (4.30-5.90); White Blood Cell Count 8.83 K/mm3 (4.00-11.30)
[2024-04-08 23:27] LABS: Albumin, Blood 3.6 g/dL (3.4-5.0); Albumin/Globulin Ratio 0.9 (0.8-1.8); Bilirubin, Total 0.5 mg/dL (0.1-1.0); Bun/Creatinine Ratio 26.4 (12.0-20.0); Calcium, Blood 9.4 mg/dL (8.5-10.1); Creatinine, Blood 1.21 mg/dL (0.60-1.20); Globulin, Blood 3.9 g/dL (2.2-4.0); Potassium, Blood 4.2 mmol/L (3.5-5.5); Total Protein, Blood 7.5 g/dL (6.4-8.2)
[2024-04-09 00:37] LABS: Influenza A, PCR NEGATIVE (NEGATIVE); Influenza B, PCR NEGATIVE (NEGATIVE); Resp Syncytial Virus, PCR NEGATIVE (NEGATIVE); SARS-Cov-2 (COVID-19) PCR, MMC NEGATIVE (NEGATIVE)
[2024-04-09 02:59] VITALS: BP 126/89
== END 2024-04-09 03:03 | disposition home or self-care (01) ==
LOC: ER 22:22
PROVIDERS: Emergency Medicine
DX: R06.02 Shortness of breath (principal); Z79.899 Other long term (current) drug therapy; I10 Essential (primary) hypertension; K21.9 Gastro-esophageal reflux disease without esophagitis; I25.2 Old myocardial infarction
CPT/HCPCS: 0241U; 71046; 71260; 80053; 84484; 85025; 85379; 93005; 93010; 99285-25; Q9967

== ENCOUNTER 2024-11-18 09:05 | Emergency (ER) | payer MEDICARE, BC ==
[~2024-11-18] VITALS: Ht 177.8 cm; Wt 113.4 kg
[2024-11-18] MEDS ORDERED: Ondansetron HCl 2 MG / ML 2ML Vial IV ONE (09:50)
[2024-11-18] MEDS ORDERED: NS 1,000 ML IV SCH (09:50)
[2024-11-18] MEDS ORDERED: FentaNYL Citrate 50 MCG/ML 2 ML Injection IV ONE ×2 (09:50→12:35)
[2024-11-18 10:36] LABS: BASOPHILS ABSOLUTE AUTO 0.02 K/mm3 (0.00-0.23); BASOPHILS PERCENT AUTO 0 % (0-2); EOSINOPHILS ABSOLUTE AUTO 0.12 K/mm3 (0.00-0.68); EOSINOPHILS PERCENT AUTO 2 % (0-6); Hematocrit 40.7 % (37.0-53.0); Hemoglobin 13.7 g/dL (13.5-17.5); IMMATURE GRAN ABSOLUTE AUTO 0.04 K/mm3 (0.00-0.10); IMMATURE GRAN PERCENT AUTO 1 % (0-1); LYMPHOCYTES ABSOLUTE AUTO 1.71 K/mm3 (0.84-5.20); LYMPHOCYTES PERCENT AUTO 21 % (21-46); MONOCYTES ABSOLUTE AUTO 0.68 K/mm3 (0.16-1.47); MONOCYTES PERCENT AUTO 9 % (4-13); Mean Corpuscular HGB 31.4 pg (26.0-34.0); Mean Corpuscular HGB Conc 33.7 g/dL (31.5-36.5); Mean Corpuscular Volume 93 fL (80-100); Mean Platelet Volume 9.9 fL (9.1-12.4); NEUTROPHILS ABSOLUTE AUTO 5.45 K/mm3 (1.96-9.15); NEUTROPHILS PERCENT AUTO 68 % (41-73); Platelet Count 216 K/mm3 (150-400); RDW Coefficient Variation 13.7 % (11.7-14.2); RDW Standard Deviation 46.7 fL (35.1-46.3); Red Blood Cell Count 4.36 M/mm3 (4.30-5.90); White Blood Cell Count 8.02 K/mm3 (4.00-11.30)
[2024-11-18 10:37] LABS: Albumin, Blood 4.1 g/dL (3.4-5.0); Albumin/Globulin Ratio 1.2 (0.8-1.8); Bilirubin, Total 0.7 mg/dL (0.1-1.0); Bun/Creatinine Ratio 20.2 (12.0-20.0); Calcium, Blood 9.5 mg/dL (8.5-10.1); Creatinine, Blood 1.24 mg/dL (0.60-1.20); Globulin, Blood 3.4 g/dL (2.2-4.0); Potassium, Blood 4.2 mmol/L (3.5-5.5); Total Protein, Blood 7.5 g/dL (6.4-8.2)
[2024-11-18 11:35] LABS: Source, Urine Clean Catch
[2024-11-18] MEDS ORDERED: Benazepril HCl10 MG PO (11:39)
[2024-11-18] MEDS ORDERED: METOPROLOL SUCC25 MG PO (11:39)
[2024-11-18] MEDS ORDERED: Aspir 8181 MG PO (11:39)
[2024-11-18 11:48] LABS: Appearance, Urine Clear (Clear); Bilirubin, Urine Neg (Neg); Blood, Urine Neg (Neg); Color, Urine Yellow (P-Yellow); Glucose Qualitative, Urine Neg (Neg); Ketones, Urine Neg (Neg); Leukocyte Esterase, Urine Neg (Neg); Nitrite, Urine Neg (Neg); Protein, Urine 2+ (Neg); Urobilinogen, Urine NORM (Normal)
[2024-11-18 12:08] LABS: Bacteria Few /hpf; Mucus Light (0-Heavy); Red Blood Cells, Urine 0-2 /hpf (0-2); Squamous Epithelial Cells Few /hpf (Few); White Blood Cells, Urine 0-2 /hpf (0-5)
[2024-11-18 12:30] VITALS: BP 138/88
[2024-11-18] MEDS ORDERED: Tamsulosin HCl 0.4 MG Cap PO ONE (12:35)
[2024-11-18] MEDS ORDERED: TAMS.4ER PO (12:37)
[2024-11-18] MEDS ORDERED: Percocet 5-3251 EACH PO (12:37)
[2024-11-18] MEDS ORDERED: OxyCODONE 7.5 mg/Acetam 325 mg TABLET PO ONE (12:45)
== END 2024-11-18 13:01 | disposition home or self-care (01) ==
LOC: ER 09:05
PROVIDERS: Emergency Medicine
DX: N21.0 Calculus in bladder (principal); Z79.01 Long term (current) use of anticoagulants; Z79.899 Other long term (current) drug therapy; K21.9 Gastro-esophageal reflux disease without esophagitis; I10 Essential (primary) hypertension
CPT/HCPCS: 74176; 80053; 81001; 84484; 85025; 93005; 93010; 96361; 96374; 96375; 99284-25; A9270; J2405; J3010; J7030

== ENCOUNTER 2025-02-04 14:50 | Emergency (ER) | payer MEDICARE, BC ==
[~2025-02-04] VITALS: Ht 177.8 cm; Wt 113.4 kg
[~2025-02-04 14:50] MED LIST changes: +Aspir 8181 MG PO; +Benazepril HCl10 MG PO; +METOPROLOL SUCC25 MG PO; +Percocet 5-3251 EACH PO; +TAMS.4ER PO
[2025-02-04] MEDS ORDERED: Ondansetron HCl 2 MG / ML 2ML Vial IV ONE (15:20)
[2025-02-04] MEDS ORDERED: NS 500 ML IV SCH (15:20)
[2025-02-04] MEDS ORDERED: FUROSEMIDE40 MG PO (15:34)
[2025-02-04 15:45] LABS: BASOPHILS ABSOLUTE AUTO 0.05 K/mm3 (0.00-0.23); BASOPHILS PERCENT AUTO 0 % (0-2); EOSINOPHILS ABSOLUTE AUTO 0.12 K/mm3 (0.00-0.68); EOSINOPHILS PERCENT AUTO 1 % (0-6); Hematocrit 43.2 % (37.0-53.0); Hemoglobin 14.1 g/dL (13.5-17.5); IMMATURE GRAN ABSOLUTE AUTO 0.11 K/mm3 (0.00-0.10); IMMATURE GRAN PERCENT AUTO 1 % (0-1); LYMPHOCYTES ABSOLUTE AUTO 1.34 K/mm3 (0.84-5.20); LYMPHOCYTES PERCENT AUTO 8 % (21-46); MONOCYTES ABSOLUTE AUTO 1.40 K/mm3 (0.16-1.47); MONOCYTES PERCENT AUTO 8 % (4-13); Mean Corpuscular HGB Conc 32.6 g/dL (31.5-36.5); Mean Corpuscular Volume 95 fL (80-100); NEUTROPHILS ABSOLUTE AUTO 14.10 K/mm3 (1.96-9.15); NEUTROPHILS PERCENT AUTO 82 % (41-73); NRBC ABSOLUTE 0.00 K/mm3 (0.00-0.02); NRBC Auto 0.0 /100 WBC (0.0-0.2); Platelet Count 257 K/mm3 (150-400); RDW Coefficient Variation 13.2 % (11.7-14.2); RDW Standard Deviation 46.9 fL (35.1-46.3)
[2025-02-04 15:59] LABS: Alanine Aminotransfer (ALT/SGP 33.0 U/L (12-78); Albumin, Blood 4.2 g/dL (3.4-5.0); Albumin/Globulin Ratio 1.1 (0.8-1.8); Anion Gap 9.0 mmol/L (3-11); Aspartate Aminotrans (AST/SGOT 21.0 U/L (12-37); Bilirubin, Total 0.4 mg/dL (0.1-1.0); Blood Urea Nitrogen 30.0 mg/dL (8-24); CO2, Blood 25.0 mmol/L (21-32); Calcium, Blood 9.3 mg/dL (8.5-10.1); Chloride, Blood 107.0 mmol/L (98-108); Creatinine, Blood 1.58 mg/dL (0.60-1.20); Globulin, Blood 3.9 g/dL (2.2-4.0); Glucose, Blood 99.0 mg/dL (70-99); Potassium, Blood 4.4 mmol/L (3.5-5.5); Sodium, Blood 137.0 mmol/L (136-145); Total Protein, Blood 8.1 g/dL (6.4-8.2)
[2025-02-04 18:18] LABS: Source, Urine Clean Catch
[2025-02-04 18:35] LABS: Bilirubin, Urine Neg (Neg); Color, Urine Yellow (P-Yellow); Glucose Qualitative, Urine Neg (Neg); Ketones, Urine Neg (Neg); Leukocyte Esterase, Urine Neg (Neg); Protein, Urine Neg (Neg); Specific Gravity, Urine 1.015 (1.003-1.022); Urobilinogen, Urine NORM (Normal)
[2025-02-04 19:18] LABS: Influenza A, PCR NEGATIVE (NEGATIVE); Influenza B, PCR NEGATIVE (NEGATIVE); Resp Syncytial Virus, PCR NEGATIVE (NEGATIVE); SARS-Cov-2 (COVID-19) PCR, MMC NEGATIVE (NEGATIVE)
[2025-02-04 21:00] VITALS: BP 112/78
== END 2025-02-04 21:13 | disposition home or self-care (01) ==
LOC: ER 14:50
PROVIDERS: Emergency Medicine
DX: I95.9 Hypotension, unspecified (principal); D72.829 Elevated white blood cell count, unspecified; I10 Essential (primary) hypertension; K21.9 Gastro-esophageal reflux disease without esophagitis; Z79.899 Other long term (current) drug therapy; Z79.82 Long term (current) use of aspirin
CPT/HCPCS: 71045; 80053; 81003; 83605; 85025; 87637; 93005; 93010; 96360; 99285-25; J7030

== ENCOUNTER 2025-06-02 07:51 | Day surgery (SDC) | payer MEDICARE, BC ==
[~2025-06-02] VITALS: Ht 177.8 cm; Wt 112.3 kg
[~2025-06-02 07:51] MED LIST changes: +FUROSEMIDE40 MG PO
[2025-06-02] MEDS ORDERED: AMOX-CLAV200 MG/5 M (08:09)
--- NOTE | 2025-06-02 08:42 | NUR ---
06/02/25 0842 FlorenceSee RECEIVED VERBAL PERMISSION FROM PT TO HAVE NURSE EDUCATOR KHOA IN ENDOSCOPY ROOM TO OBSERVE.
--- NOTE | 2025-06-02 08:56 | NUR ---
06/02/25 0856 [place],See ORTEGA NURSE EDUCATOR IN ROOM.
[2025-06-02 10:09] VITALS: BP 103/78
== END 2025-06-02 10:17 | disposition home or self-care (01) ==
LOC: ORSCSDS 07:51
DX: Z12.11 Encounter for screening for malignant neoplasm of colon (principal); Z86.0101 Personal history of adenomatous and serrated colon polyps; D12.2 Benign neoplasm of ascending colon; D12.3 Benign neoplasm of transverse colon; D12.5 Benign neoplasm of sigmoid colon; I10 Essential (primary) hypertension; E78.5 Hyperlipidemia, unspecified; G47.33 Obstructive sleep apnea (adult) (pediatric); E66.01 Morbid (severe) obesity due to excess calories; Z68.35 Body mass index [BMI] 35.0-35.9, adult; Z86.711 Personal history of pulmonary embolism; Z79.899 Other long term (current) drug therapy; Z79.82 Long term (current) use of aspirin; K76.0 Fatty (change of) liver, not elsewhere classified
CPT/HCPCS: 88305; J2704; J7120